=== PATIENT | female | born 1980 | race Caucasian/White ===

== ENCOUNTER 2018-10-09 05:08 | Inpatient (IN) | payer BC, OTHER ==
[2018-10-09] MEDS ORDERED: ceFAZolin SODIUM/DEXTROSE,ISO 2 GM/50 ML BAG IV ONE (05:14)
[2018-10-09] MEDS ORDERED: RINGER'S SOLUTION,LACTATED 1,000 ML IV PRN (05:14)
[2018-10-09] MEDS ORDERED: OXYTOCIN 20 UNITS in RINGER'S SOLUTION,LACTATED 1,000 ML IV ONE ×2 (05:14→08:43)
[2018-10-09] MEDS ORDERED: NORMAL SALINE 1,000 ML IV ONE (07:17)
--- NOTE | 2018-10-09 07:21 | ANES ---
Anesthesia Pre Procedure Eval HOME MEDICATIONS Vits96/Iron Fum/Folic [ S] 1 tab PO DAILY 05/01/13 [Last Taken 10/08/18 21:00] vitamin B complex tablet 1 tab PO DAILY 04/18/18 [Last Taken 10/08/18 21:00] Allergies/Adverse Reactions: Allergies Allergy/AdvReac Type Severity Reaction Status Date / Time No Known Allergies Allergy Verified 10/07/18 08:47 - Planned Procedure Planned Procedure: Section w/valeria salpingectomy Medication List Reviewed:: Yes Allergies Verified: Yes Medical History (Last Reviewed 10/09/18 @ 07:11 by Vladimir Ziegler CRNA) Short interval between pregnancies affecting , antepartum (Acute) Onset Date: 03/19/18 AMA (advanced maternal age) multigravida 35+ (Acute) Onset Date: 2009 state, incidental (Acute) Onset Date: 01/06/18 Breast lump Onset Date: 01/05/17 H/O placenta previa H/O wisdom tooth extraction History of in vitro fertilization In vitro fertilization Onset Date: 01/05/17 LGSIL (low grade squamous intraepithelial dysplasia) Onset Date: 12/22/14 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 Missed Onset Date: 11/24/14 Surgical History (Last Reviewed 10/09/18 @ 07:11 by Vladimir Ziegler CRNA) delivery delivered (Acute) delivery delivered Onset Date: 2012 Placenta previa S/P LASIK surgery Family History (Last Reviewed 10/09/18 @ 07:11 by Vladimir Ziegler CRNA) Aunt Cancer breast and ovarian Brother High cholesterol Hypertension Mother DVT (deep venous thrombosis) Father , age 72 Cancer blood cancer Aneurysm Stented coronary artery Gallstone Renal stones Grandmother Aneurysm - Family Anesthesia History Family History:: no untoward family reactions to anesthesia, no familial bleeding tendencies, no family history of clotting disorders, no family history of premature - Airway/Neck/Teeth Within Normal Limits:: Yes Teeth Condition: intact Mallampatti Score: 2 Thyromental (T-M) distance: > 6 cm Mandibulo Hyoid distance: > 3 cm - Respiratory Respiratory Physical: lungs clear Discussed smoking cessation including day of surgery: No Sleep Apnea currently treated: No Sleep Apnea by current assessment: No Discussed Risks/Treatment of JENNY: No - Cardiovascular Tolerate Activity: Good Heart Sounds: S1 & S2, Regular - Anesthesia Assessment and Plan ASA Class: PS, II Anesthesia Type Plan: Spinal Planned difficult intubation/equipment available: No - Bilateral ultrasound guided TAP blocks for postop analgesia
[2018-10-09] MEDS ORDERED: OXYTOCIN IV SCH (07:30)
[2018-10-09] MEDS ORDERED: NORMAL SALINE IV SCH (07:30)
[2018-10-09] MEDS ORDERED: BISACODYL 10 MG SUPP.RECT RC PRN (08:43)
[2018-10-09] MEDS ORDERED: KETOROLAC TROMETHAMINE 30 MG/ML VIAL IV PRN (08:43)
[2018-10-09] MEDS ORDERED: diphenhydrAMINE HCL 25 MG CAPSULE PO PRN (08:43)
[2018-10-09] MEDS ORDERED: SIMETHICONE 80 MG TAB.CHEW PO PRN (08:43)
[2018-10-09] MEDS ORDERED: ONDANSETRON HCL/PF 2 MG/ML VIAL IV PRN (08:43)
[2018-10-09] MEDS ORDERED: SENNOSIDES 8.6 MG TABLET PO PRN (08:43)
[2018-10-09] MEDS ORDERED: RINGER'S SOLUTION,LACTATED 1,000 ML IV ONE (08:43)
[2018-10-09] MEDS ORDERED: oxyCODONE HCL/ACETAMINOPHEN 1 TAB TABLET PO PRN (08:43)
--- NOTE | 2018-10-09 09:06 | ANES ---
Post Anesthesia Discharge - Transfer of Care Transfer of Care handoff given to nurse: Yes - Discharge from PACU Discharge from PACU when meets criteria: Yes - Discharge to ASU Discharge to ASU-no complications/pt stable: Yes
--- NOTE | 2018-10-09 09:09 | ANES ---
Anesthesia Procedure Note Procedure Note: ANESTHESIA PROCEDURE NOTE Date of Procedure: 10/09/2018. Time of procedure: 0855. Performed by: Vladimir Ziegler CRNA Dryerman/Woman: None. Preprocedure diagnosis: Prior , desires sterilization. Post procedure diagnosis: Same. Procedure: Bilateral ultrasound-guided transversus abdominis plane block for postop analgesia. Indications: The patient is a 38-year-old female post section, requesting bilateral ultrasound-guided tap block for postoperative analgesia related to repeat . Findings: See below. Details of the procedure: ChloraPrep was used on the patient's abdomen and the procedure was performed under sterile technique. The right abdominal fascial layer between the internal oblique muscle and the transversus abdominis muscles was identified under ultrasound guidance. A 21-gauge 4 inch block needle was inserted under ultrasound guidance to the target fascial plane. 15 mL's of 0.5% bupivacaine plus epinephrine 1:200,000 was injected after negative aspiration for blood. The needle was removed intact and the procedure was then repeated at the left side. No complications were noted. The images were retained in the hospital medical database. EBL: Minimal. Fluids: N/A. Specimen: N/A. Post procedure condition: The patient tolerated the procedure well. No complications were noted. Thank you for this consultation. Vladimir Ziegler CRNA
--- NOTE | 2018-10-09 09:12 | OR ---
Operative Report - Dictated Report Narrative: Date of delivery: 10/09/2018 Time of delivery: 811 Gender: male weight: 4069 grams APGARS: 06/16 Procedure: repeat delivery, bilateral salpingectomies Indications for the procedure: The patient is a 38 year old at 39w 2d who presents for a repeat delivery and salpingectomies. All risks, benefits, and alternatives of the procedure were explained to the patient and the patient consented to the procedure. Description of the procedure: The patient was taken to the operating room where spinal anesthesia was induced without difficulty. She was then prepped and draped in the supine position in the standard surgical fashion. Attention was then turned to the abdomen. A Pfannestiel skin incision was made following the old incision. The incision was carried through the subcutaneous tissue. The omentum appeared in the incision prior to the fascia in the midline so there was a slight defect of the fascia in the midline. The fascia was incised with the scalpel. The fascia was dissected off the underlying rectus muscles. The peritoneum was entered bluntly. A large Herbie-O retractor was placed. The lower uterine segment was incised in a transverse fashion. The uterine incision was extended bluntly. The membranes were ruptured and a large amount of clear fluid was expressed. The head was delivered atraumatically. The rest of the was delivered atraumatically and handed off to the attending pediatric staff. The uterus was cleared of all clots and debris. The uterine incision was closed with 0-vicryl in a running locking fashion. Two additional figure of eight sutures were used for hemostasis at both corners. The left fallopian tube was identified by following it to the fimbriated end. The left fallopian tube was cut along the mesosalpinx all the way to the cornual region. The left tube was sent for pathological analysis. The same procedure was repeated on the right and the right tube was sent for pathological analysis. A small paratubal cyst was identified on the right. The fascia was closed with 1-0 vicryl. The muscles and fascia were inspected for bleeding and made hemostatic as appropriate. The subcutaneous tissue was irrigated and made hemostatic. The skin incision was closed with 3-0 monocryl on a Phillip needle. Dermabond was placed over the incision. EBL: 600 mL Complications: none Specimens: fallopian tubes
[2018-10-09] MEDS ORDERED: SODIUM CHLORIDE 500 DROP BTL NS SCH (09:30)
--- NOTE | 2018-10-09 09:46 | ANES ---
Post Anesthesia Assessment - Vital Signs Vitals: Last Vital Signs Temp 36.7 C 10/09/18 09:10 Pulse 78 10/09/18 09:10 Resp 18 10/09/18 09:10 BP 124/42 10/09/18 09:10 Pulse Ox 99 10/09/18 09:10 Airway Patency: Normal - Mental Status Level Of Consciousness: Awake - Pain Level Pain Score: 0 - N/V Assessment Nausea/Vomiting Presence: None Dehydration:: No
[2018-10-09] MEDS: oxyCODONE HCL/ACETAMINOPHEN 1 TAB TABLET PO PRN ×4 (10:12→19:31)
[2018-10-09] MEDS: IBUPROFEN 800 MG TABLET PO PRN ×2 (10:12→16:27)
[2018-10-09] MEDS: SODIUM CHLORIDE 45 SPRAY BTL NS SCH ×2 (10:13→21:10)
[2018-10-09] MEDS: PSEUDOEPHEDRINE HCL 30 MG TAB PO PRN ×2 (10:41→17:44)
[2018-10-09] MEDS: DOCUSATE SODIUM 100 MG CAPSULE PO SCH ×2 (18:38→21:12)
[2018-10-10] MEDS: oxyCODONE HCL/ACETAMINOPHEN 1 TAB TABLET PO PRN ×3 (02:06→20:48)
[2018-10-10] MEDS: IBUPROFEN 800 MG TABLET PO PRN ×4 (02:06→20:49)
[2018-10-10] MEDS: PSEUDOEPHEDRINE HCL 30 MG TAB PO PRN ×4 (02:09→20:48)
[2018-10-10] MEDS: DOCUSATE SODIUM 100 MG CAPSULE PO SCH ×2 (08:22→20:48)
--- NOTE | 2018-10-10 08:46 | PN ---
Subjective - Date and Time Seen Date: 10/10/18 Time: 08:45 Subjective Narrative: Pt without complaints Objective Objective Narrative: See vital signs - Review of Systems Generalized/Overall Review: Reports: No Symptoms Reported Misc: All systems neg except as marked - Vitals Vitals: Last Vital Signs Temp 36.9 C 10/10/18 07:22 Pulse 84 10/10/18 07:22 Resp 16 10/10/18 07:22 BP 138/73 10/10/18 07:22 Pulse Ox 97 10/10/18 07:22 - Exam Constitutional: Present: Alert, Oriented x3, Cooperative, No distress Abdomen: Present: soft, nontender, nondistended - incision c/d/i Extremity: Present: non-tender, no calf tenderness Skin Exam: Present: normal color, warm/dry, no cyanosis Appearance: Present: appropriate appearance Eye contact: Present: cooperative Thoughts: Present: normal thought pattern Cauti Physician Documentation - Urinary Catheter Management Urethral (Morales) Urethral Indwelling: No Date of Insertion: 10/09/18 Time of Insertion: 07:55 Date of Removal: 10/09/18 Time of Removal: 20:25 Assessment/Plan Plan Narrative: POD 1 s/p delivery Doing well Discharge POD 3
[2018-10-10] MEDS: SODIUM CHLORIDE 45 SPRAY BTL NS SCH ×2 (11:27→20:48)
[2018-10-11] MEDS: oxyCODONE HCL/ACETAMINOPHEN 1 TAB TABLET PO PRN (03:27)
[2018-10-11] MEDS: IBUPROFEN 800 MG TABLET PO PRN ×3 (03:27→17:27)
--- NOTE | 2018-10-11 08:01 | PN ---
Subjective - Date and Time Seen Date: 10/11/18 Time: 08:00 Subjective Narrative: Pt without complaints Objective Objective Narrative: See vital signs - Review of Systems Generalized/Overall Review: Reports: No Symptoms Reported Misc: All systems neg except as marked - Vitals Vitals: Last Vital Signs Temp 36.9 C 10/11/18 00:55 Pulse 93 10/11/18 00:55 Resp 14 10/11/18 00:55 BP 141/78 H 10/11/18 00:55 Pulse Ox 98 10/11/18 00:55 - Exam Constitutional: Present: Alert, Oriented x3, Cooperative, No distress Abdomen: Present: soft, nontender, nondistended - incision c/d/i Extremity: Present: non-tender, no calf tenderness Skin Exam: Present: normal color, warm/dry, no cyanosis Appearance: Present: appropriate appearance Eye contact: Present: cooperative Thoughts: Present: normal thought pattern Cauti Physician Documentation - Urinary Catheter Management Urethral (Morales) Urethral Indwelling: No Date of Insertion: 10/09/18 Time of Insertion: 07:55 Date of Removal: 10/09/18 Time of Removal: 20:25 Assessment/Plan Plan Narrative: POD 2 s/p delivery Doing well Discharge tomorrow
[2018-10-11] MEDS: DOCUSATE SODIUM 100 MG CAPSULE PO SCH ×2 (10:56→21:12)
[2018-10-11] MEDS: SODIUM CHLORIDE 45 SPRAY BTL NS SCH ×2 (10:57→21:13)
[2018-10-12] MEDS: IBUPROFEN 800 MG TABLET PO PRN ×2 (01:44→08:07)
[2018-10-12] MEDS: oxyCODONE HCL/ACETAMINOPHEN 1 TAB TABLET PO PRN ×2 (01:44→12:37)
[2018-10-12] MEDS: SODIUM CHLORIDE 45 SPRAY BTL NS SCH (12:36)
[2018-10-12] MEDS: DOCUSATE SODIUM 100 MG CAPSULE PO SCH (12:39)
--- NOTE | 2018-10-12 15:10 | PN ---
Subjective - Date and Time Seen Date: 10/12/18 Subjective Narrative: Post op day 3, s/p repeat c/s and bilateral salpingectomy. BP little high, but asymptomatic. pain controlled. normal lochia. ready to go home. Objective - Vitals Vitals: Last Vital Signs Temp 36.5 C 10/12/18 02:42 Pulse 93 10/12/18 02:42 Resp 16 10/12/18 02:42 BP 160/75 H 10/12/18 02:42 Pulse Ox 97 10/12/18 02:42 - Exam Constitutional: Present: Alert, Oriented x3, Cooperative Abdomen: Present: soft, nontender, nondistended, other - incision dry and clean with dermabond. fundus firm below umbilicus. may have a small umbilical hernia. Extremity: Present: normal range of motion, no pedal edema, no calf tenderness Skin Exam: Present: normal color, warm/dry, no cyanosis Appearance: Present: appropriate appearance Eye contact: Present: cooperative, good eye contact, normal speech Cauti Physician Documentation - Urinary Catheter Management Urethral (Morales) Urethral Indwelling: No Date of Insertion: 10/09/18 Time of Insertion: 07:55 Date of Removal: 10/09/18 Time of Removal: 20:25 Assessment/Plan Plan Narrative: A: post op day 3, s/p repeat c/s and bilateral salpingectomy. stable and well plan: discharge today. follow up in clinic in one week for BP check and incision check. Reynaldo Vyas MD
[2018-10-12 15:12] VITALS: BP 151/77
== END 2018-10-12 15:30 | disposition home or self-care (01) | DRG 785 ==
LOC: OB 05:08
PROVIDERS: ADMIT Obstetrics & Gynecology; ATTEND Obstetrics & Gynecology
CPT/HCPCS: 59025; 64486; 86850; 86900; 88302